=== PATIENT | male | born 2000 | race Two or more races ===

== ENCOUNTER 2020-12-26 20:13 | Emergency (ER) | payer SELFPAY ==
[~2020-12-26] VITALS: Ht 172.7 cm; Wt 72.7 kg
[2020-12-26 21:20] VITALS: BP 127/64
[2020-12-26] MEDS ORDERED: QUEtiapine FUMARATE 100 MG TABLET PO ONE (22:15)
== END 2020-12-26 22:40 | disposition home or self-care (01) ==
LOC: EMS 20:15
DX: F41.9 Anxiety disorder, unspecified (principal); Z76.0 Encounter for issue of repeat prescription
CPT/HCPCS: 99283; Z7502